=== PATIENT | male | born 1960 | race Caucasian/White ===

== ENCOUNTER 2024-03-19 12:05 | Emergency (ER) | payer MEDICARE ==
[~2024-03-19] VITALS: Ht 165.1 cm; Wt 79.0 kg
[2024-03-19 12:15] VITALS: O2SAT 99
[2024-03-19 12:58] LABS: EOSINOPHILS % 0.5 % (0.0-5.0); HEMATOCRIT. 46.6 % (42.0-52.0); HEMOGLOBIN. 16.2 g/dL (14.0-18.0); LYMPHOCYTES % 23.3 % (20.0-50.0); MEAN CORPUSCULAR HGB CONC 34.7 g/dL (31.0-37.0); MEAN CORPUSCULAR VOLUME 86.4 fL (80.0-94.0); MONOCYTES % 6.4 % (2.0-8.0); NEUTROPHILS % 68.8 % (40.0-76.0); PLATELET 159 x1000/uL (130-400); RED BLOOD CELL COUNT 5.39 mill/uL (4.7-6.1); RED CELL DISTRIBUTION WIDTH 13.6 % (11.6-14.6)
[2024-03-19 13:00] LABS: CHLORIDE 106 mEq/L (98-107); SODIUM 136 mEq/L (136-145)
[2024-03-19 13:01] LABS: CARBON DIOXIDE 25 mEq/L (21-32)
[2024-03-19 13:02] LABS: CALCIUM 9.6 mg/dL (8.7-10.4)
[2024-03-19 13:06] LABS: CREATININE 0.7 mg/dL (0.6-1.3); GLUCOSE 214 mg/dL (70-105); UREA NITROGEN BLOOD 6 mg/dL (9-23)
[2024-03-19] MEDS ORDERED: KETOROLAC 60MG/2ML VIAL IM ONE (16:15)
[2024-03-19] MEDS ORDERED: TOPUD MT (17:04)
[2024-03-19] MEDS ORDERED: DICL500C MT (17:04)
[2024-03-19] MEDS ORDERED: IBUP-1525 MT (17:04)
[2024-03-19] MEDS: KETOROLAC 30MG/ML VIAL IM NR (17:05)
[2024-03-19] MEDS: TETANUS, DIPHTHERIA, PERTUSSIS VAC/PF 0.5ML (>10YR OLD) IM ONE (17:05)
[2024-03-19 17:24] LABS: CLARITY URINE CLEAR (CLEAR); COLOR URINE YELLOW (YELLOW); GLUCOSE URINE NEGATIVE (NEGATIVE); KETONES URINE NEGATIVE (NEGATIVE); LEUKOCYTE ESTERASE URINE NEGATIVE (NEGATIVE); NITRITE URINE NEGATIVE (NEGATIVE); OCCULT BLOOD URINE NEGATIVE (NEGATIVE); PH URINE 6.5 (4.5-8.0); PROTEIN URINE NEGATIVE (NEGATIVE); UROBILINOGEN URINE 0.2 E.U./dL (0.2-1.0)
[2024-03-19 17:55] VITALS: BP 128/82; PULSE 81; RESP 16; TEMP 98.2
== END 2024-03-19 17:55 | disposition home or self-care (01) ==
LOC: ER 12:51
DX: S91.111A Laceration without foreign body of right great toe without damage to nail, initial encounter (principal); E11.9 Type 2 diabetes mellitus without complications; W18.30XA Fall on same level, unspecified, initial encounter; Y93.89 Activity, other specified; Y92.89 Other specified places as the place of occurrence of the external cause; Y99.8 Other external cause status
CPT/HCPCS: 99284; 80048; 81003; 82962; 85025; 36415; 73630; 90715; 90471; 96372; J1885